=== PATIENT | female | born 2005 ===

== ENCOUNTER 2023-05-30 14:51 | Emergency (ER) | payer SELFPAY ==
[~2023-05-30] VITALS: Ht 167.6 cm; Wt 90.9 kg
[2023-05-30 14:59] VITALS: BP 131/90; PULSE 89; TEMP 98
== END 2023-05-30 17:45 | disposition home or self-care (01) ==
LOC: COL.ER 14:51
DX: T76.21XA Adult sexual abuse, suspected, initial encounter (principal); S31.821A Laceration without foreign body of left buttock, initial encounter; S31.811A Laceration without foreign body of right buttock, initial encounter; Y04.8XXA Assault by other bodily force, initial encounter
CPT/HCPCS: J0696

== ENCOUNTER → 2023-05-30 | Outpatient (REF) | payer OTHER | LOC: COL.ER 14:58 | DX: Z04.41 Encounter for examination and observation following alleged adult rape (principal) ==